=== PATIENT | male | born 1975 | race Caucasian/White ===

== ENCOUNTER 2021-02-02 08:45 | Outpatient (RCR) | payer OTHER ==
--- NOTE | 2021-03-07 13:25 | 30 Day Event Recorder ---
30-DAY EVENT RECORDER 30-DAY EVENT RECORDER DATE OF PROCEDURE: 02/02/2021-03/03/2021. INDICATION: Syncope. PROCEDURE: A 30-day event recorder was obtained for a total of 27 days and 9 hours. 12 rhythm strips were presented for review. The study quality is adequate. RESULTS: 1. Baseline sinus rhythm with an average heart rate of 77 bpm, ranging from 50- 163 bpm with rare, isolated premature supraventricular and premature ventricular complexes each representing less than 1% of the total recording time. 2. There were no pauses exceeding 2 seconds in duration. 3. No symptoms appear to have been reported during the test. IMPRESSION: 1. This is a 30-day event recorder that was obtained for total of 27 days and 9 hours. 2. Baseline sinus rhythm with an average heart rate of 77 bpm, ranging from 50- 163 bpm with rare, isolated premature supraventricular and premature ventricular complexes each representing less than 1% of the total recording time. 3. No symptoms appear to have been reported during the test. Certain portions of this document may have been dictated utilizing voice recognition technology. Inherent to this technology, typographical and grammatical errors may exist. As much as I am diligent to identify and correct these mistakes, some errors may remain in the document. MARYAN DE LA GARZA JR, MD Mar 07, 2021 13:25
== END 2021-05-03 | disposition home or self-care (01) ==
LOC: CARD 08:45
PROVIDERS: ATTEND Internal Medicine Cardiovascular Disease
DX: I51.7 Cardiomegaly (principal); R55 Syncope and collapse
CPT/HCPCS: 93270; 93306